=== PATIENT | female | born 1965 | race Caucasian/White ===

== ENCOUNTER 2016-11-29 14:26 | Emergency (ER) | payer MEDICAID ==
[~2016-11-29] VITALS: Ht 162.6 cm; Wt 75.7 kg
[~2016-11-29 14:26] MED LIST: ALB6.8IN; ALBU17AE3 IH; BUPR200T2 PO; BUPR300T; CLD600T PO; CLON2TAB; CLR500T; CRS350T PO; DICY20TA57 PO; GABA-486; HYDR-2890 PO; HYOS0.1216 PO; LISD70CA3 PO; LRZ1T PO; LUBI8CAP2 PO; MELA3TAB; MELO15TA39; ONDA-42 SL; PNT40TEC PO; PRD20T PO; QUET50TA PO; QUET50TA55; QUIN20TA PO; QUIN20TA15 PO; SEROQUEL; TRAM50TA2
[2016-11-29] MEDS ORDERED: AZIT250T5 PO (15:12)
[2016-11-29] MEDS ORDERED: FLUT9.9S NS (15:12)
--- NOTE | 2016-11-29 15:12 | ED Cough/URI ---
General Chief Complaint: Cough/Cold/Flu Symptoms Stated Complaint: MIGRAINE/CONGESTION Source: patient Exam Limitations: no limitations History of Present Illness Time seen by provider: 15:09 Initial Comments To ER with a frontal headache and nasal congestion 5 days. Denies rhinorrhea or nasal discharge. Intermittent fevers unmeasured. No cough. No sore throat. Timing/Duration: just prior to arrival Severity/Quality: moderate Associated Symptoms: fever/chills, headache, nasal congestion Allergies and Home Medications Allergies Coded Allergies: No Known Drug Allergies (Verified , 11/16/08) Home Medications Albuterol 17 Gm Inh IH PRN (Reported) Bupropion Hcl 200 Mg Tablet.sa 200 MG PO BID (Reported) Dicyclomine Hcl 20 Mg Tablet 20 MG PO QID PRN PRN CRAMPS (Reported) Gabapentin 100 Mg Capsule #60 (Reported) Lisdexamfetamine Dimesylate 70 Mg Capsule 70 MG PO DAILY (Reported) Lorazepam 1 Mg Tab 2 MG PO BID (Reported) Lubiprostone 8 Mcg Capsule 8 MCG PO BID (Reported) Melatonin 3 Mg Tablet #40 (Reported) Meloxicam 15 Mg Tablet #30 (Reported) Prednisone 20 Mg Tab #8 20 MG PO BID Prescribed by: JANEE HENSON on 02/09/16 1022 Quetiapine Fumarate 50 Mg Tablet #60 (Reported) Tramadol HCl 50 Mg Tablet #28 (Reported) Constitutional: see HPI chills fever EENTM: see HPI Respiratory: no symptoms reportedNo cough Cardiovascular: no symptoms reported Genitourinary: no symptoms reported Musculoskeletal: no symptoms reported Skin: no symptoms reported Psychiatric/Neurological: No Symptoms Reported Hematologic/Lymphatic: No Symptoms Reported Past Vulpauc-Qncueo-[place] Hx Patient Social History Former Smoker/When Quit: Jan 01, 2012 Recent Foreign Travel: No Contact w/Someone Who Travel: No Immunizations Up To Date Tetanus Booster (TDap): Unknown Date of Pneumonia Vaccine: Aug 02, 2011 Date of Influenza Vaccine: Aug 02, 2011 Surgeries HX Surgeries: Yes Surgeries: Appendectomy, Section, Tonsillectomy Respiratory Hx Respiratory Disorders: No Cardiovascular Hx Cardiac Disorders: Yes Cardiac Disorders: Hypertension Neurological Hx Neurological Disorders: No Reproductive System Hx Reproductive Disorders: Yes Genitourinary Hx Genitourinary Disorders: No Gastrointestinal Hx Gastrointestinal Disorders: No Musculoskeletal Hx Musculoskeletal Disorders: Yes (right ankle) Musculoskeletal Disorders: Degenerate Disk Disease, Chronic Back Pain, Fractures Endocrine Hx Endocrine Disorders: Yes (BORDERLINE DIABETIC) HEENT HX ENT Disorders: No Cancer Hx Cancer: No Psychosocial Hx Psychiatric Problems: Yes Behavioral Health Disorders: ADD/ADHD, Anxiety, Depression Integumentary HX Skin/Integumentary Disorder: No Blood Transfusions Hx Blood Disorders: No Physical Exam Vital Signs Capillary Refill : General Appearance: WD/WN no apparent distress Eyes: Bilateral Eye EOMI, Bilateral Eye Normal Inspection, Bilateral Eye PERRL HEENT: PERRL/EOMI normal ENT inspection TMs normal Neck: non-tender full range of motion Respiratory: normal breath sounds no respiratory distress no accessory muscle use Cardiovascular: regular rate, rhythm no edema Gastrointestinal: normal bowel sounds non tender soft Extremities: normal range of motion non-tender Neurologic/Psychiatric: alert normal mood/affect oriented x 3 Skin: normal color warm/dry Departure Impression Impression: Primary Impression: Nasal congestion Additional Impression: Frontal headache Disposition: HOME, SELF-CARE Condition: Stable Departure-Patient Inst. Decision time for Depature: 15:11 Referrals: [facility] (PCP/Family) Primary Care Physician Patient Instructions: NO INSTRUCTIONS GIVEN Add. Discharge Instructions: 1. Medication as directed 2. See your doctor next week All discharge instructions reviewed with patient and/or family. Voiced understanding. Scripts Fluticasone Propionate (Flonase Allergy Relief)9.9 Ml [place].susp1 [place] NS DAILY #1 SPRAY Prov:SETH LOZOYA APRN 11/29/16 Azithromycin 250 Mg [id number] Mg PO UD #6 TAB TAKE 2 TABLETS ON DAY ONE THEN TAKE 1 TABLET DAILY FOR FOUR MORE DAYS Prov:SETH LOZOYA APRN 11/29/16 SETH LOZOYA APRN Nov 29, 2016 15:12
[2016-11-29] MEDS ORDERED: KETOROLAC 60 MG/2 ML VIAL IM ONE (15:15)
[2016-11-29 15:38] VITALS: BP 134/44
== END 2016-11-29 15:45 | disposition home or self-care (01) ==
LOC: EDUNIT# 14:26 → ER 14:28
DX: R51 Headache (principal); R09.81 Nasal congestion; I10 Essential (primary) hypertension; Z79.899 Other long term (current) drug therapy
CPT/HCPCS: 96372; 99282

== ENCOUNTER 2018-12-16 10:00 | Outpatient (RCR) | payer MEDICAID ==
[~2018-12-16 10:00] MED LIST changes: +AZIT250T12 PO; +FLUT9.9S NS
== END 2018-12-16 10:55 | disposition home or self-care (01) ==
PROVIDERS: ATTEND Orthopaedic Surgery
DX: Z47.1 Aftercare following joint replacement surgery (principal); Z96.641 Presence of right artificial hip joint

== ENCOUNTER → 2019-01-14 | Outpatient (CLI) | payer MEDICAID ==
--- NOTE | 2019-01-14 19:40 | Diagnostic Imaging Report ---
INDICATION: Routine screening. COMPARISON: Prior mammogram from 05/26/2013 and 04/09/2012. EXAMINATION: 2D and 3D bilateral screening mammography was performed with CAD. The current study was also evaluated with a Computer Aided Detection (CAD) system. FINDINGS: Scattered fibronodular densities are identified, bilaterally. The parenchymal pattern is stable. No mass or malignant appearing microcalcifications are seen. The axillae are unremarkable. IMPRESSION: No mammographic features suspicious for malignancy are identified. ACR BI-RADS Category 1: Negative. Result letter will be mailed to the patient. Note: At least 10% of breast cancer is not imaged by mammography. Dictated by: Dictated on workstation # [id number]
== END ==
LOC: RAD 10:05
PROVIDERS: ATTEND Nurse Practitioner Community Health
DX: Z12.31 Encounter for screening mammogram for malignant neoplasm of breast (principal)
CPT/HCPCS: 77067

== ENCOUNTER 2023-05-19 08:13 | Emergency (ER) | payer MEDICARE, MEDICAID ==
[~2023-05-19] VITALS: Ht 164 cm; Wt 78.9 kg
[~2023-05-19 08:13] MED LIST changes: -MELA3TAB; +MELA3TAB39; +QUET50TA23; -QUET50TA55; -TRAM50TA2; +TRM50T
--- NOTE | 2023-05-19 08:16 | ED Back Pain ---
General Chief Complaint: Back Problems Stated Complaint: BACK PAIN History of Present Illness Date Seen by Provider: May 19, 2023 Time Seen by Provider: 08:16 Initial Comments 57-year-old female presents with right lower posterior thoracic pain. Patient brought in by EMS. When asked patient what brought her in she said "read EMS report" was eventually got that patient has pain has been going on mildly since she "popped her back" last week. That today getting groceries she had worsening pain. There is no actual injury today. Allergies and Home Medications Allergies Coded Allergies: No Known Drug Allergies (Verified , 11/16/08) Patient Home Medication List Home Medication List Reviewed: Yes Albuterol (Proventil) 17 Gm Inh, IH PRN, (Reported) Entered as Reported by: MAYRA GARCIA on 11/16/08 1833 Azithromycin (Azithromycin) 250 Mg Tablet, 250 MG PO UD Prescribed by: SETH LOZOYA on 11/29/16 1512 Bupropion Hcl (Wellbutrin Sr) 200 Mg Tablet.sa, 200 MG PO BID, (Reported) Entered as Reported by: JADEN BARAJAS on 07/20/14 1017 Dicyclomine Hcl (Bentyl) 20 Mg Tablet, 20 MG PO QID PRN for CRAMPS, (Reported) Entered as Reported by: JADEN BARAJAS on 07/20/14 1017 Fluticasone Propionate (Flonase Allergy Relief) 9.9 Ml [place].susp, 1 SPRAY NS DAILY Prescribed by: SETH LOZOYA on 11/29/16 1512 Gabapentin (Gabapentin) 100 Mg Capsule, (Reported) Entered as Reported by: MAKENZIE GROVER on 02/09/16 0933 Lisdexamfetamine Dimesylate (Vyvanse) 70 Mg Capsule, 70 MG PO DAILY, (Reported) Entered as Reported by: JADEN BARAJAS on 07/20/14 1017 Lorazepam (Ativan) 1 Mg Tab, 2 MG PO BID, (Reported) Entered as Reported by: CECILIO GRACE on 03/07/12 0123 Lubiprostone (Amitiza) 8 Mcg Capsule, 8 MCG PO BID, (Reported) Entered as Reported by: JADEN BARAJAS on 07/20/14 1017 Melatonin (Melatonin) 3 Mg Tablet, (Reported) Entered as Reported by: MAKENZIE GROVER on 4/9/16 0933 Meloxicam (Meloxicam) 15 Mg Tablet, (Reported) Entered as Reported by: MAKENZIE GROVER on 02/09/16932 Prednisone (Prednisone) 20 Mg Tab, 20 MG PO BID Prescribed by: JANEE HENSON on 02/09/16 1022 Quetiapine Fumarate (Quetiapine Fumarate) 50 Mg Tablet, (Reported) Entered as Reported by: MAKENZIE GROVER on 02/09/16932 Tramadol HCl (Tramadol HCl) 50 Mg Tablet, (Reported) Entered as Reported by: MAKENZIE GROVER on 02/09/16932 Review of Systems Constitutional: No chills, No fever Respiratory: no symptoms reported Cardiovascular: no symptoms reported Gastrointestinal: no symptoms reported Genitourinary: no symptoms reported Musculoskeletal: see HPI Skin: no symptoms reported Psychiatric/Neurological: No Symptoms Reported Past Ludlnvx-Klfmhw-Aeqxyy Hx Immunizations Up To Date Tetanus Booster (TDap): Unknown Past Medical History Appendectomy, Section, Tonsillectomy Hypertension Reproductive Disorders: Yes Degenerate Disk Disease, Chronic Back Pain, Fractures ADD/ADHD, Anxiety, Depression Physical Exam Vital Signs Vital Signs - First Documented 05/19/23 08:15 Temp 35.7 Pulse 98 Resp 22 B/P (MAP) 138/87 (104) Pulse Ox 96 O2 Delivery Room Air Capillary Refill : Height, Weight, BMI Height: 5'4" Weight: 167lbs. 8.0oz. 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 Patient's symptoms consistent with acute muscle spasm/strain of her thoracic wall muscles on the back. Patient will be prescribed Flexeril. Recommend she take ibuprofen and her milligrams 3-4 times daily. Topical Voltaren and lidocaine as needed and directed on package. Warm moist heat. Patient stable and discharged home Departure Impression Primary Impression: Strain of thoracic region Qualified Codes: S29.019A - Strain of muscle and tendon of unspecified wall of thorax, initial encounter Additional Impression: Sprain of ribs, initial encounter Disposition: 01 HOME, SELF-CARE Condition: Stable Departure-Patient Inst. Referrals: [facility]/ (PCP) Primary Care Physician GERTRUDIS LOW (Family) Primary Care Physician Patient Instructions: Muscle Strain (DC) Add. Discharge Instructions: Warm moist heat for 10 to 15 minutes at a time 3-4 times daily. 800 mg ibuprofen every 6-8 hours as needed. 4% topical lidocaine with menthol cream gel or patch use as directed on package. Voltaren/diclofenac cream or gel use as directed on package as needed. Follow-up with your primary care provider and 4 to 5 days if symptoms or not improving or continue to worsen for repeat exam and evaluation All discharge instructions reviewed with patient and/or family. Voiced understanding. Scripts Cyclobenzaprine HCl (Cyclobenzaprine HCl) 10 Mg Tablet 10 MG PO Q8H PRN for SPASMS, #15 TAB 0 Refills Prov: CAMILLA LAIRD DO 05/19/23 CAMILLA LAIRD DO May 19, 2023 08:16
[2023-05-19] MEDS ORDERED: KETOROLAC 30 MG/ML VIAL IVP STA (08:21)
[2023-05-19] MEDS ORDERED: ORPHENADRINE 60 MG/2 ML (NORFLEX) AMP (ED ONLY) IM STA (08:21)
--- NOTE | 2023-05-19 10:17 | Diagnostic Imaging Report ---
CLINICAL INDICATION: Patient with right scapular neck pain. Patient popped her back last week and has been cramping this morning. EXAMS: Chest x-ray, AP and lateral views. X-ray right rib series. COMPARISONS: Chest x-ray dated 07/19/2014. FINDINGS: LUNGS/ PLEURA: Lungs are clear. There is no pneumothorax. There is no pleural effusion. MEDIASTINUM: Unremarkable. PULMONARY VASCULATURE: Unremarkable. HEART: Unremarkable. BONES/ EXTRATHORACIC SOFT TISSUE: There are small degenerative spurs involving the thoracic spine. RIB SERIES: Unremarkable with no rib fracture or abnormality. IMPRESSION: 1: There is no radiographic evidence of acute cardiopulmonary process. 2: There are no rib fractures or abnormality. Dictated by: Dictated on workstation # [id number]
[2023-05-19] MEDS ORDERED: CYCL10TA25 PO (10:29)
[2023-05-19 10:34] VITALS: BP 143/86
== END 2023-05-19 10:34 | disposition home or self-care (01) ==
LOC: EDUNIT# 08:13 → ER 08:14
DX: S29.012A Strain of muscle and tendon of back wall of thorax, initial encounter (principal); S23.41XA Sprain of ribs, initial encounter; Z28.310 Unvaccinated for COVID-19; X50.1XXA Overexertion from prolonged static or awkward postures, initial encounter
CPT/HCPCS: 71101